=== PATIENT | female | born 1995 | race American Indian/Alaskan Native ===

== ENCOUNTER → 2024-03-03 00:01 | Outpatient (BNV) | payer SELFPAY | PROVIDERS: Visit Provider Radiology Diagnostic Radiology | DX: S69.91XA Unspecified injury of right wrist, hand and finger(s), initial encounter (principal) | CPT/HCPCS: 73130 ==

== ENCOUNTER 2024-05-18 16:18 | Emergency (ER) | payer MEDICAID, SELFPAY ==
--- NOTE | ~2024-05-18 | XR_ITS ---
CLINICAL HISTORY: swelling, felt a pull sensation in knee Radiographs of the right knee, 4 views Comparison: None Findings: Is a fracture line involving the proximal tibia at the medial aspect seen on the AP view. There is an ossific fragment seen in the posterior aspect of the proximal tibia on the lateral view measuring up to 6 mm. Lucency extending into the medial tibial plateau is seen on the oblique view. There is a comminuted fracture of the fibular head without significant displacement. No dislocation. No joint space narrowing or osteophytosis. Bone mineralization is normal. Small joint effusion. Soft tissue swelling. Impression: Fracture of the medial tibial plateau. Evaluate further with CT. Comminuted nondisplaced fracture of the fibular head. This document has been electronically signed by: Andree Graham MD on 05/18/2024 17:04:26
--- NOTE | ~2024-05-18 | CT_ITS ---
CLINICAL HISTORY: pain swelling ?tibial plateau fracture CT right knee without contrast Comparison: CR - XR KNEE RT 4V - 05/18/24 16:51 EDT Findings: There is a fracture of the medial tibial plateau with comminution. The fracture and since 2 proximal metaphysis of the medial aspect. Depression of the fracture fragments measures up to 2 mm. Anterior displacement of the fracture fragments measures up to 3 mm. There is linear 8 mm fracture fragment of the posterior aspect of the medial tibial plateau, which was also seen on the radiographs. There is a comminuted fracture of head of the fibula without significant displacement. The osseous structures are otherwise intact. No dislocation. No osseous lesion. The joint spaces are preserved without osteophytosis. Small lipohemarthrosis. Small Guzmán's cyst. There is a prominent amount stranding and edema in the posterior medial aspect of knee/proximal calf involving the gastrocnemius and soleus. Musculature is normal in bulk. The extensor mechanism is intact. Impression: Comminuted fracture of the medial tibial plateau with up to 2 mm of depression, Schatzker IV. Comminuted nondisplaced fracture of the fibular head. Suspect tear of the medial head of the gastrocnemius tendon, myotendinous injury and posttraumatic myositis. This can be further evaluated with MR. This document has been electronically signed by: Andree Graham MD on 05/18/2024 19:04:06
[2024-05-18 16:30] VITALS: BP 122/84; PULSE 95; RESP 18; TEMP 36.2; O2SAT 98; BMI 27.1
--- NOTE | 2024-05-18 16:56 | ED.GENADULT ---
HPI - General Adult General Chief complaint: Extremity Injury, Lower Stated complaint: Right Knee pain / swollen Time Seen by Provider: 05/18/24 21:02 Source: patient, RN notes reviewed and old records reviewed Mode of arrival: wheelchair Limitations: no limitations History of Present Illness ED Provider: Irvin WIN narrative: 28-year-old female with no significant past medical history presents for evaluation of right knee pain. Patient reports that around 10:00 a.m. this morning she was running when she felt the pain in her right knee The pain cause her to fall to the ground and then she landed on the same knee She reports 10/10 pain to the lower aspect of the right knee Denies any head strike No other complaints or concerns at this time Related Data Previous Rx's ?Medication ?Instructions ?Recorded amoxicillin 875 mg-potassium 1 tab PO BID #20 tabs 03/03/24 clavulanate 125 mg tablet ibuprofen 600 mg tablet 600 mg PO Q6H PRN fever or pain 03/03/24 #30 tabs oxycodone 5 mg tablet 5 mg PO Q6H PRN severe pain (scale 05/18/24 score 7-10) #12 tabs Allergies Allergy/AdvReac Type Severity Reaction Status Date / Time No Known Allergies Allergy Unverified 05/18/24 16:32 Review of Systems Constitutional: Constitutional: Denies body ache(s), Denies chills and Denies headache(s) ENT: Denies headache(s) Cardiovascular: Cardiovascular: Denies chest pain Musculoskeletal: Musculoskeletal: Reports arthralgias, Reports joint swelling and Reports limited range of motion Integumentary/Breasts: Skin/Breast: Denies rash Neurologic: Denies headache(s) [facility] Social History Social History Alcohol intake: current Alcohol intake frequency: a few times a week Alcohol type: hard liquor Smoked in Last 30 Days: No Use of substances other than those prescribed or required for medical reasons: No Substance Use Type: Marijuana Advance Directives: No Advance Directives Information Provided: No Patient : No Physical Exam ED Vital Signs: Vital Signs - 24 hr 05/18/24 16:30 05/18/24 20:17 05/18/24 21:53 Temperature 97.2 F 99 F 98.8 F Pulse Rate 95 89 84 Respiratory Rate 18 16 16 Blood Pressure 122/84 141/98 H 122/68 Pulse Oximetry 98 98 98 Oxygen Delivery Method Room Air Room Air Room Air BMI result Body Mass Index 27.1 Const General: healthy appearing, comfortable, no acute distress, alert and awake Nutritional Appearance: well nourished Orientation/consciousness: patient oriented x3 HENMT Head: Yes normocephalic and Yes atraumatic Eyes Eyelids: Yes eyelids normal Conjunctivae: conjunctivae normal Sclerae: sclerae normal Corneas: corneas normal Pupils: Equal, round and reactive pupils present EOM: EOMs intact bilaterally Neck Neck: Yes full ROM Resp Effort & Inspection: normal respiratory effort, able to speak in complete sentences and not labored Skin General skin exam: elasticity normal Neuro General: patient oriented x3 Cranial nerves: Yes Equal, round and reactive pupils present and Yes Bilaterally intact EOM present Cognition (Neuro): normal cognition Extrem Other: Patient has moderate edema to the right knee. There is no tenderness in the suprapatellar or patellar region. She has exquisite tenderness in the right infrapatellar region. She has some tenderness to the upper region of the right gastrocnemius muscle. There is a fullness to the right calf region but the compartment remains soft. PT and DP pulses are 2+ and equal. Distal sensation and capillary refill intact. She was able to wiggle all toes on the right foot. Course Course Course Narrative: This is a Rapid Medical Examination (RME) performed by Jagjit Riggins PA-C in triage. Full HPI, ROS, assessment and treatment plan per primary provider in the Main ED. 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 states she was running, felt her knee pull and then fell onto the knee. PE/vitals: vital signs stable. unable to view knee in triage d/t patient's pants. Plan: imaging Medications Administered Discontinued Medications Generic Name Dose Route Start Last Admin Trade Name Airam PRN Reason Stop Dose Admin Ibuprofen 600 mg 05/18/24 20:17 05/18/24 20:20 Ibuprofen 600 Mg Tablet PO 05/18/24 20:18 600 mg ONCE ONE Administration Oxycodone HCl 5 mg 05/18/24 21:17 05/18/24 21:28 Oxycodone Hcl Immed Release 5 Mg Tablet PO 05/18/24 21:18 5 mg ONCE ONE Administration Medical Decision Making Medical Decision Making MDM Narrative: 28-year-old female presents for evaluation of right knee pain. She was running when she had pain to her knee caused her to fall and land on the same knee. She had an x-ray that showed concern for a tibial plateau fracture. A follow up CAT scan was ordered while she was still in the waiting room which shows a tibial plateau fracture, fibular head fracture, as well as a likely gastrocnemius tear. This happened about 12 hours prior to my evaluation. At the time of my evaluation there is no evidence of compartment syndrome. I discussed with Orthopedic surgery, Beth Guevara who feels the patient can be discharged safely if her pain is well controlled and does not exhibit signs of compartment syndrome. I did discuss warning signs of compartment syndrome with the patient and when she should return to the hospital if she were to see these symptoms. She will be discharged with a knee immobilizer, crutches and orthopedic follow-up Differential Diagnosis Differential Diagnoses: The differential diagnosis associated with the presentation includes Patellar tendon rupture Knee fracture Tibial plateau fracture Fibula fracture Admission/Observation Consideration of admission/observation: Escalation of care including admission/observation considered Considered observation but ultimately felt the patient was stable for discharge as low suspicion for compartment syndrome Independent Interpretation I performed an independent interpretation of an: Plain X-Ray Interpretation: Findings: Is a fracture line involving the proximal tibia at the medial aspect seen on the AP view. There is an ossific fragment seen in the posterior aspect of the proximal tibia on the lateral view measuring up to 6 mm. Lucency extending into the medial tibial plateau is seen on the oblique view. There is a comminuted fracture of the fibular head without significant displacement. No dislocation. No joint space narrowing or osteophytosis. Bone mineralization is normal. Small joint effusion. Soft tissue swelling. Impression: Fracture of the medial tibial plateau. Evaluate further with CT. Comminuted nondisplaced fracture of the fibular head. This document has been electronically signed by: Andree Graham MD on 05/18/2024 17:04:26 Findings: There is a fracture of the medial tibial plateau with comminution. The fracture and since 2 proximal metaphysis of the medial aspect. Depression of the fracture fragments measures up to 2 mm. Anterior displacement of the fracture fragments measures up to 3 mm. There is linear 8 mm fracture fragment of the posterior aspect of the medial tibial plateau, which was also seen on the radiographs. There is a comminuted fracture of head of the fibula without significant displacement. The osseous structures are otherwise intact. No dislocation. No osseous lesion. The joint spaces are preserved without osteophytosis. Small lipohemarthrosis. Small Guzmán's cyst. There is a prominent amount stranding and edema in the posterior medial aspect of knee/proximal calf involving the gastrocnemius and soleus. Musculature is normal in bulk. The extensor mechanism is intact. Impression: Comminuted fracture of the medial tibial plateau with up to 2 mm of depression, Schatzker IV. Comminuted nondisplaced fracture of the fibular head. Suspect tear of the medial head of the gastrocnemius tendon, myotendinous injury and posttraumatic myositis. This can be further evaluated with MR. This document has been electronically signed by: Andree Graham MD on 05/18/2024 19:04:06 Discharge Plan Discharge Clinical Impression: Closed fracture of tibial plateau Patient Disposition: Home, Self-Care Instructions: Leg Fracture (ED), Compartment Syndrome (DC) Additional Instructions: You have a complicated fracture of your right knee. You have a tibial plateau fracture, a fibular head fracture, and a likely gastrocnemius tear. It is very important that you do not put any weight on your right leg Keep the knee immobilizer in place. You may use ibuprofen/Tylenol for pain You may use oxycodone for more severe, breakthrough pain This may make you drowsy, do not drink alcohol or drive after taking it It was important that you follow up with Orthopedics, call tomorrow to make an appointment. If you have discoloration of your right foot, toes, or leg, have excruciating pain unrelieved with pain meds, numbness or tingling in the right foot or toes you should return to the ER sooner Prescriptions: New oxycodone 5 mg tablet 5 mg PO Q6H PRN (Reason: severe pain (scale score 7-10)) Qty: 12 0RF Rx Instructions: Partial Fill upon patient request. No Action ibuprofen 600 mg tablet 600 mg PO Q6H PRN (Reason: fever or pain) Qty: 30 0RF amoxicillin-pot clavulanate 875-125 mg tablet 1 tab PO BID Qty: 20 0RF Referrals: Santos Mccallum MD [Physician] - (tibial plateau fracture) Interventions: ED Discharge Assessment Last Done: 05/18/24 23:05 Print Language: Ukrainian
[2024-05-18 20:17] VITALS: BP 141/98; PULSE 89; RESP 16; TEMP 37.2; O2SAT 98
[2024-05-18] MEDS: Ibuprofen 600 MG TABLET PO (20:20)
[2024-05-18] MEDS: oxyCODONE HCl Immed Release 5 MG TABLET PO (21:28)
--- NOTE | 2024-05-18 21:38 | PC.NURSE ---
pt medicated per mar, tolerated well whole with water.
--- NOTE | 2024-05-18 21:46 | PC.NURSE ---
knee immobilize placed on right knee.
[2024-05-18 21:53] VITALS: BP 122/68; PULSE 84; RESP 16; TEMP 37.1; O2SAT 98
[2024-05-18 23:05] VITALS: BP 122/68; PULSE 84; RESP 16; TEMP 37.1; O2SAT 98
== END 2024-05-18 23:07 | disposition home or self-care (01) ==
PROVIDERS: Emergency Provider Emergency Medicine; PCP Family Medicine
DX: S82.144A Nondisplaced bicondylar fracture of right tibia, initial encounter for closed fracture (principal); S82.454A Nondisplaced comminuted fracture of shaft of right fibula, initial encounter for closed fracture; W19.XXXA Unspecified fall, initial encounter; Y93.02 Activity, running; Y92.9 Unspecified place or not applicable; Y99.9 Unspecified external cause status; M25.561 Pain in right knee
CPT/HCPCS: 73564; 73700; 99284

== ENCOUNTER → 2024-05-18 16:33 | Outpatient (BNV) | payer MEDICAID, SELFPAY | PROVIDERS: Visit Provider Radiology Diagnostic Radiology | DX: S82.144A Nondisplaced bicondylar fracture of right tibia, initial encounter for closed fracture (principal); S82.451A Displaced comminuted fracture of shaft of right fibula, initial encounter for closed fracture | CPT/HCPCS: 73564; 73700 ==

== ENCOUNTER 2024-05-23 08:30 | Outpatient (AMB) | payer MEDICAID, SELFPAY ==
--- NOTE | 2024-05-23 08:33 | MHC.OFFVIS ---
Vital Signs 05/23/24 08:37 Height 5 ft 3 in Weight 153 lb BMI 27.1 Intake Visit Reasons: FC-Right tibial plateau 05/18/24 Intake Note: Russ is a 28 year old female who presents today for a fracture care visit of her right knee. Patient reports that she was running on 05/18/24 when she felt sudden onset of pain in the knee causing her to fall on the right knee. After the injury she was seen at [facility] ED where it was found that she has a Right Tibial Plateau fracture and was placed in a leg immobilizer. She states that her pain is a 08/10 on the pain scale. Patient expresses that her pain is a throbbing/sharp pain under her knee cap and it moves to the back of her calf. Patient is taking oxycodone that was prescribed by the ED which is giving her relief. Allergies No Known Allergies Allergy (Verified 05/23/24 08:37) HPI HPI FC-Right tibial plateau 05/18/24: Details: The patient is a 28-year-old female presenting with a right knee injury that occurred after sustaining a fall while running downhill. The fall resulted in a direct impact to the right knee, and the patient reports continuous pain which has not dissipated since the injury on November 18. The patient was transported to the emergency department where x-rays and a CT scan was obtained and she was found to have a right tibial plateau fracture. She was placed into a knee immobilizer and instructed to follow-up with orthopedics outpatient for further evaluation and treatment. She has been managing her pain with oxycodone that was prescribed by the emergency department but she has depleted her supply and would like a refill. [facility] Social History Alcohol intake: current Alcohol intake frequency: a few times a week Alcohol type: hard liquor Substance Use Type: Marijuana Review of Systems Const All systems reviewed & are unremarkable except as noted in HPI and below Physical Exam Const General: cooperative, healthy appearing and no acute distress Resp Effort & Inspection: normal respiratory effort and able to speak in complete sentences Cardio Rate: regular rate Peripheral pulses: Peripheral pulses 2+ throughout Skin Lesions: no lesions Rashes: no rashes Extrem Other: Right knee: Moderate effusion accompanied by global tenderness to palpation. Apical slightly flex and extend but is severely limited due to pain. Able to dorsiflex and plantar flex. NVI. Office Procedures AMB Fracture Care Fracture Billing Code: Fracture Billing Code Assessment & Plan Assessment & Plan (1) Tibial plateau fracture, right: Code(s): S82.141A - Displaced bicondylar fracture of right tibia, initial encounter for closed fracture Category: Medical Plan The patient is a 28-year-old female presenting with a right knee injury that occurred after sustaining a fall while running downhill. The fall resulted in a direct impact to the right knee, and the patient reports continuous pain which has not dissipated since the injury on November 18. The patient was transported to the emergency department where x-rays and a CT scan was obtained and she was found to have a right tibial plateau fracture. She was placed into a knee immobilizer and instructed to follow-up with orthopedics outpatient for further evaluation and treatment. She has been managing her pain with oxycodone that was prescribed by the emergency department but she has depleted her supply and would like a refill. During the consultation, I explained to the patient the presence of a right tibial plateau fracture and fibular head fracture identified through X-ray and CT imaging. I outlined the management plan involving non-surgical treatment, emphasizing that the recovery duration with or without surgery is similar. Due to the minimum displacement of 2 mm of the tibial plateau non operative management is recommended this time. The patient was informed about the necessity of using an ACL knee brace which was provided to her today off the shelf and adhering to [id number] protocols for three months. I discussed the importance of range of motion exercises to reduce stiffness and demonstrated this to the patient in the office today . I assured the patient of a refill of the Oxycodone with a subsequent weaning plan, acknowledging her depleted supply from the ED. We scheduled a follow-up with x-rays in four weeks, as well as a possible physical therapy regimen to enhance recovery. The patient was receptive to this plan and voiced understanding of the discussed strategies and associated recovery expectations. X-Rays of the right knee obtained on 05/18/2024: Impression: Fracture of the medial tibial plateau. Comminuted nondisplaced fracture of the fibular head. CT scan of the right knee obtained on 05/18/24: Impression: Comminuted fracture of the medial tibial plateau with up to 2 mm of depression, Schatzker IV. Comminuted nondisplaced fracture of the fibular head. Suspect tear of the medial head of the gastrocnemius tendon, myotendinous injury and posttraumatic myositis. Coding Level of Care Code New Pt Level 4 (72772) Diagnoses Tibial plateau fracture, right S82.141A CPT Codes Fracture Care - Fracture Billing Code: Fracture Billing Code ([id number])
[2024-05-23 08:37] VITALS: BMI 27.1
== END 2024-05-23 08:58 | disposition home or self-care (01) ==
LOC: HO.HOS 08:31
PROVIDERS: PCP Family Medicine; Visit Provider Physician Assistant
DX: S82.141A Displaced bicondylar fracture of right tibia, initial encounter for closed fracture (principal)
CPT/HCPCS: 99204

== ENCOUNTER → 2024-05-23 08:30 | Outpatient (BNVA) | payer MEDICAID, SELFPAY | PROVIDERS: PCP Family Medicine; Visit Provider Physician Assistant | DX: S82.141A Displaced bicondylar fracture of right tibia, initial encounter for closed fracture (principal) | CPT/HCPCS: 99202 ==

== ENCOUNTER 2024-06-20 09:26 | Outpatient (REF) | payer MEDICAID, SELFPAY ==
--- NOTE | ~2024-06-20 | XR_ITS ---
EXAMINATION: XR KNEE, RIGHT CLINICAL INFORMATION: M25.569 - Pain in unspecified knee COMPARISON: May 18, 2024. TECHNIQUE: Three views of the right knee. FINDINGS: There is sclerotic articular surface and 1 mm deformity of the medial tibial plateau right knee. There is a cortical disruption deformity in the proximal fibula head without callus formation. There is a suprapatellar bursa joint effusion, moderate to large volume. XR/XR knee RT 3V IMPRESSION: Probable healed fracture medial tibial plateau. Nonhealing fracture, right fibula head. Suprapatellar bursa joint effusion, moderate volume. Please refer to the CT dated May 18, 2024. Electronically signed by: Nathan Beltran MD 06/23/2024 03:54 PM EDT
== END 2024-06-20 09:27 | disposition home or self-care (01) ==
LOC: HO.HOSX 09:26
PROVIDERS: Visit Provider Physician Assistant
DX: M25.561 Pain in right knee (principal); S82.141G Displaced bicondylar fracture of right tibia, subsequent encounter for closed fracture with delayed healing; M25.461 Effusion, right knee
CPT/HCPCS: 73562; 99212

== ENCOUNTER 2024-06-20 11:29 | Outpatient (AMB) | payer MEDICAID, SELFPAY ==
[2024-06-20 11:34] VITALS: BMI 27.1
--- NOTE | 2024-06-20 11:34 | A.OFFVIS_ITS ---
Vital Signs 06/20/24 11:34 Height 5 ft 3 in Weight 153 lb BMI 27.1 Intake Visit Reasons: OV- Right tibial plateau fx DOI 05/18/24 Intake Note: Russ is a 28 year old female who presents today for a follow up of her right tibial plateau fx, DOI 05/18/24. Patient reports she is doing well. She states having discomfort with bend her knee. Allergies No Known Allergies Allergy (Verified 06/20/24 11:34) HPI HPI OV- Right tibial plateau fx DOI 05/18/24: Details: Russ Conteh is a 28-year-old female who presents to the office today for routine follow up of a right tibial plateau fracture that she sustained on 05/18/2024. Unfortunately, the patient presents to the office today weight- bearing as tolerated without any assistive devices and not wearing the brace. Overall the patient states that she is doing very well. She states that she continues to have some discomfort especially with stair climbing. [facility] Social History Alcohol intake: current Alcohol intake frequency: a few times a week Alcohol type: hard liquor Substance Use Type: Marijuana Review of Systems Const All systems reviewed & are unremarkable except as noted in HPI and below Physical Exam Vital Signs: BMI result Body Mass Index 27.1 Const General: cooperative, healthy appearing and no acute distress Resp Effort & Inspection: normal respiratory effort and able to speak in complete sentences Extrem Other: Right knee normal to inspection no ecchymosis erythema or joint effusion. Tenderness to palpation on the medial joint line. Range of motion 0-100 degrees. NVI. Assessment & Plan Assessment & Plan (1) Tibial plateau fracture, right: Code(s): S82.141A - Displaced bicondylar fracture of right tibia, initial encounter for closed fracture Category: Medical Plan Russ Conteh is a 28-year-old female who presents to the office today for routine follow up of a right tibial plateau fracture that she sustained on 05/18/2024. Unfortunately, the patient presents to the office today weight- bearing as tolerated without any assistive devices and not wearing the brace. Overall the patient states that she is doing very well. She states that she continues to have some discomfort especially with stair climbing. I re-educated the patient on the importance of wearing the ACL brace locked in extension while ambulating and nonweightbearing status on the right lower extremity. I educated the patient that there is a potential that the tibial plateau fracture could displace leading to the need for surgical intervention. I educated the patient that she should be nonweightbearing for a total of 3 months status post injury. Patient demonstrates understanding. She will follow up in 6 weeks, sooner if needed. X-rays of the right knee which were obtained while in the office today and were reviewed by me, Beth Alberto PA-C, revealed tibial plateau fracture with routine healing. Orders: Orders XR knee RT 3V Today M25.569 - Pain in unspecified knee Coding Level of Care Code Global (53931) Diagnoses Tibial plateau fracture, right S82.141A
== END 2024-06-20 11:45 | disposition home or self-care (01) ==
LOC: HO.HOS 11:29
PROVIDERS: PCP Family Medicine; Visit Provider Physician Assistant
DX: S82.141A Displaced bicondylar fracture of right tibia, initial encounter for closed fracture (principal)
CPT/HCPCS: 99213

== ENCOUNTER → 2024-06-20 11:32 | Outpatient (BNV) | payer MEDICAID, SELFPAY | PROVIDERS: Visit Provider Radiology Diagnostic Radiology | DX: M25.461 Effusion, right knee (principal); S82.401G Unspecified fracture of shaft of right fibula, subsequent encounter for closed fracture with delayed healing | CPT/HCPCS: 73562 ==

== ENCOUNTER 2024-08-01 08:48 | Outpatient (REF) | payer MEDICAID, SELFPAY | END 2024-08-01 08:49 | disposition home or self-care (01) | LOC: HO.HOSX 08:48 | PROVIDERS: Visit Provider Physician Assistant | DX: Z13.89 Encounter for screening for other disorder (principal) ==

== ENCOUNTER 2024-08-30 22:30 | Emergency (ER) | payer SELFPAY ==
--- NOTE | ~2024-08-30 | XR_ITS ---
CLINICAL HISTORY: Pain 3 view left wrist Comparison: None provided Findings: Nondisplaced fracture of the distal ulnar diaphysis. There is periosteal reaction which may be healing however underlying osseous mass cannot be excluded. No other fractures. No dislocation. No radiopaque foreign body. IMPRESSION: 1. Nondisplaced distal ulnar diaphyseal fracture with periosteal reaction, may represent healing versus underlying osseous mass. Recommend MRI for further evaluation. This document has been electronically signed by: Milena Greenwood MD on 08/31/2024 01:02:20
[2024-08-30 22:49] VITALS: BP 114/59; PULSE 77; RESP 14; TEMP 36.7; O2SAT 98; BMI 22.1
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
[2024-08-31 01:14] VITALS: BP 117/85; PULSE 71; RESP 16; TEMP 36.7; O2SAT 97
[2024-08-31 01:16] VITALS: BP 117/85; PULSE 71; RESP 16; TEMP 36.7; O2SAT 97
== END 2024-08-31 01:16 | disposition home or self-care (01) ==
PROVIDERS: Emergency Provider Internal Medicine
DX: S52.501A Unspecified fracture of the lower end of right radius, initial encounter for closed fracture (principal); M79.631 Pain in right forearm; X58.XXXA Exposure to other specified factors, initial encounter; Y93.9 Activity, unspecified; Y92.9 Unspecified place or not applicable; Y99.8 Other external cause status
CPT/HCPCS: 29125; 73110; 99284

== ENCOUNTER → 2024-08-30 23:59 | Outpatient (BNV) | payer SELFPAY | PROVIDERS: Emergency Provider Internal Medicine; Visit Provider Radiology Diagnostic Radiology | DX: S52.615A Nondisplaced fracture of left ulna styloid process, initial encounter for closed fracture (principal) | CPT/HCPCS: 73110 ==

== ENCOUNTER 2024-09-05 14:35 | Outpatient (REF) | payer SELFPAY ==
--- NOTE | ~2024-09-05 | XR_ITS ---
EXAMINATION: XR WRIST, LEFT CLINICAL INFORMATION: M25.532 - Pain in left wrist COMPARISON: 08/01/2024. TECHNIQUE: PA, lateral, and oblique views of the left wrist. FINDINGS: Healing fracture of the distal fibular diaphysis with abundant periosteal new bone formation surrounding the fracture site. Fracture line is still visible. No change in the appearance from 08/01/2024. A mass in this region is considered highly unlikely. Otherwise, no additional fracture or focal bone lesion. Normal alignment. Normal joint spaces. Normal soft tissues. XR/XR wrist LT min 3V IMPRESSION: 1. Healing fracture distal fibula diaphysis with abundant periosteal new bone formation. Fracture line is still visible. A mass in this region is considered extremely unlikely. No significant change in the appearance from 08/01/2024. Electronically signed by: Deion Shelton MD 09/05/2024 03:06 PM EDT
== END 2024-09-05 14:36 | disposition home or self-care (01) ==
LOC: HO.HOSX 14:35
PROVIDERS: Visit Provider Orthopaedic Surgery
DX: M25.532 Pain in left wrist (principal); R22.32 Localized swelling, mass and lump, left upper limb; S52.202A Unspecified fracture of shaft of left ulna, initial encounter for closed fracture; X58.XXXA Exposure to other specified factors, initial encounter; Y93.9 Activity, unspecified; Y92.9 Unspecified place or not applicable; Y99.9 Unspecified external cause status
CPT/HCPCS: 73110; 99202

== ENCOUNTER 2024-09-05 14:35 | Outpatient (AMB) | payer SELFPAY ==
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
== END 2024-09-05 15:21 | disposition home or self-care (01) ==
LOC: HO.HOS 14:35
PROVIDERS: Visit Provider Orthopaedic Surgery
DX: R22.32 Localized swelling, mass and lump, left upper limb (principal); S52.202A Unspecified fracture of shaft of left ulna, initial encounter for closed fracture
CPT/HCPCS: 99204

== ENCOUNTER → 2024-09-05 14:54 | Outpatient (BNV) | payer SELFPAY | PROVIDERS: Visit Provider Radiology Diagnostic Radiology | DX: M25.532 Pain in left wrist (principal) | CPT/HCPCS: 73110 ==

== ENCOUNTER → 2024-10-04 15:50 | Outpatient (BNV) | payer MEDICAID, SELFPAY | PROVIDERS: Visit Provider Radiology Diagnostic Radiology | DX: S52.225D Nondisplaced transverse fracture of shaft of left ulna, subsequent encounter for closed fracture with routine healing (principal) | CPT/HCPCS: 73223 ==

== ENCOUNTER 2024-10-04 15:52 | Outpatient (REF) | payer MEDICAID, SELFPAY ==
--- NOTE | ~2024-10-04 | MR_ITS ---
CLINICAL HISTORY: S5 - Unspecified fracture of shaft of left ulna, initial encounter... --- Additional Notes or Special Instructions: The purpose of the MRI is to image the distal ulnar shaft fracture and MR left wrist with and without gadolinium Comparison: 09/05/2024 radiograph Findings: Incompletely imaged nondisplaced distal ulnar shaft fracture with neighboring callus and mild to moderate enhancing soft tissue edematous changes. More distally, relatively diffuse enhancing edematous changes/contusion in the ulna (with sparing of the ulnar styloid and portion of the ulnar epiphysis). Relatively diffuse enhancing edematous changes/contusion in the distal radial diaphysis anterior lesser extent distal radial metaphysis/epiphysis. Otherwise no evidence of abnormal enhancement. Maintained alignment. Minimal distal radioulnar joint synovitis. No significant joint effusion. Scapholunate and lunotriquetral along with extrinsic carpal ligaments are intact. Grade 1-2 sprain of the ulnar attachment of the dorsal radioulnar ligament. Grade 1 sprain of the foveal attachment of the TFC and ulnar attachment of the volar radioulnar ligament as well as the meniscus homologue. Intact TFC. Mild contusion versus tendinosis of the extensor carpi ulnaris tendon distal to the ulnar groove. Otherwise unremarkable flexor and extensor tendons, carpal tunnel, and neurovascular structures. IMPRESSION: Incompletely imaged nondisplaced distal ulnar shaft fracture with neighboring callus and mild to moderate soft tissue edematous changes. More distally, relatively diffuse edematous changes/contusion in the ulna (with sparing of the ulnar styloid and portion of the ulnar epiphysis). Relatively diffuse edematous changes/contusion in the distal radial diaphysis anterior lesser extent distal radial metaphysis/epiphysis. Minimal distal radioulnar joint synovitis. No significant joint effusion. Grade 1-2 sprain of the ulnar attachment of the dorsal radioulnar ligament. Grade 1 sprain of the foveal attachment of the TFC and ulnar attachment of the volar radioulnar ligament as well as the meniscus homologue. This document has been electronically signed by: Stephany Haas MD on 10/05/2024 10:06:09
== END 2024-10-04 15:53 | disposition home or self-care (01) ==
LOC: HO.MRI 15:52
PROVIDERS: Visit Provider Orthopaedic Surgery
DX: R22.32 Localized swelling, mass and lump, left upper limb (principal); S52.202A Unspecified fracture of shaft of left ulna, initial encounter for closed fracture
CPT/HCPCS: 73223; A9585